=== PATIENT | female | born 1990 | race Two or more races ===

== ENCOUNTER → 2018-10-11 13:46 | Outpatient (CLI) | payer BC, SELFPAY ==
[2018-10-11 17:52] LABS: Chlamydia Trachomatis by PCR Negative (Negative); Neisserai gonorrhoeae by PCR Negative (Negative); Probe Check PASS; Sample Adequacy Control PASS; Specimen Processing Control PASS
--- OUTSIDE RECORDS SUMMARY | 2018-12-13 12:58 | XMS RPT_ITS ---
:1990 Author Organization [facility] Care Team Providers Name Role Phone LILLIANA SCHAEFFER (TRIMMER AND BORER MACHINE OPERATOR) Attending Unavailable OLDER, SINDY (ANJEL) Referring Unavailable OLDER, SINDY (ANJEL) Attending Unavailable OLDER, SINDY (ANJEL) Attending Unavailable Aislinn England Attending Unavailable Primay Care Physicia, No Primary Care Unavailable PROBLEMS PROBLEMS DATE TYPE CONDITION / CODE ATTENDING STATUS SOURCE 10/12/2018 Unknown Z11.3 - Encounter Aislinn England Active [place] for screening for Community infections with a Hospital predominantly Repository sexual mode of transmission / Z11.3(ICD-10) 07/28/2018 Active Encounter for NA Active [facility] medical examination Repository without abnormal findings / Z00.00(ICD-10) PROCEDURES PROCEDURES No Procedure Records FoundRESULTS RESULTS CT/NG [facility] BY PCR Collected: 10/11/2018 Status: F Source: [place] 9:30 AM [facility] [place] REPOSITORY TYPE CODE TESTS RESULT OUT OF RANGE REFERENCE UNITS LAB L8200.2100 Negative Normal Chlam Negative Trac PCR LAB L8200.2200 Negative Normal NG by Negative PCR Performed By: #### L8200.2000 #### [facility] [address] [place], [address] PROGRESS Observed: 08/18/2018 Status: COMPLETED Source: [place] 7:55 AM [facility] REPOSITORY HNO ID: [id number] Author: Sindy Figueroa) Older Service: (none) Author Type: Nurse Practitioner Type: Progress Notes Filed: 08/18/2018 8:13 AM Note Text: CC Patient presents with: Sinus Problem Dizziness ARACELY Mix is a 28 year old female who presents with dizziness described as tilting back and forth sensation. This is new onset. Symptoms started yesterday morning. They were constant all day yesterday. No dizziness last night or this morning. Recent events include: Sinus symptoms two weeks ago including fever, nasal congestion, facial pain/pressure, sore throat. Jefferson better a couple days ago but no symptoms are coming back. Associated symptoms include blurred vision which has also resolved. Tinnitus?-No. Hearing loss/ear fullness or pressure? -No Aggravated by walking. Alleviated by holding still. Negative for: nausea, vomting, eyes jumping and ear pain, headaches, syncope, memory loss, confusion, numbness or tingling of hands, numbness or tingling of feet, muscle weakness, tremor Treatments tried include: nothing REVIEW OF SYSTEMS General: no fevers, no chills, no night sweats, no change in appetite, no change in energy and no significant changes in weight Respiratory: no cough, no wheezing, no shortness of breath Cardiovascular: no chest pain, no chest pressure, no palpitations and no swelling No past medical history on file. PAST SURGICAL HISTORY Procedure Laterality Date - NONE ALLERGIES Patient has no known allergies. MEDICATIONS No prescriptions on file. No family history on file. Social History Substance Use Topics - Smoking status: Never Smoker - Smokeless tobacco: Never Used - Alcohol use No PHYSICAL EXAM BP 120/78 (BP Site: Left Arm, BP Position: Sitting, BP Cuff Size: Regular Adult) Pulse 84 Temp 36.8 ?C (98.3 ?F) Resp 16 Wt 77.1 kg (170 lb) SpO2 99% BMI 25.18 kg/m? General appearance: Alert, cooperative, pleasant, in no acute distress Head: Normocephalic, atraumatic Eyes: conjunctiva/corneas normal, PERRL, EOMI Ears: R TM - clear with good landmarks, bubbles present, L TM - clear with good landmarks Oropharynx: moist without lesions Neck: supple and no lymph node swelling but tenderness of anterior superficial cervical nodes Heart: regular rate and rhythm, without murmur Lungs: clear to auscultation, without rales or wheeze, good air exchange Neuro: Awake, alert and oriented x 3 and Cranial nerves II- XII grossly intact ASSESSMENT/PLAN: 1. Dizziness - ICD9: 780.4, ICD10: R42 (primary diagnosis) No alarm symptoms or exam findings. Neuro and cardiac exam benign. Symptoms consistent with acute sinusitis, likely the cause of dizziness. - See plan below - Follow-up as needed if dizziness recurs 2. Acute non-recurrent sinusitis, unspecified location - ICD9: 461.9, ICD10: J01.90 - Will begin treatment with Amoxicillin for 7 days - The patient can also use OTC nasal sprays and/or cold medications/decongestants as needed - Supportive care with plenty of fluids, rest, and analgesia prn. - Follow up in 3-5 days if sinus symptoms persist or worsen. Prescription instructions reviewed with patient as applicable. Potential red flag symptoms discussed with the patient. Reviewed appropriate action plan to take if red flag symptoms occur. Patient agreeable to treatment plan Sindy You APRN.CNP CNOV Observed: 08/18/2018 Status: COMPLETED Source: [place] 7:40 AM [facility] REPOSITORY Office Visit (INTMWS) IRINA MXI ([id number]* 1990 [facility] Date Time Provider Department 08/18/18 7:40 AM SINDY YOU (ANJEL) INTBrendaWS During your visit today, we recorded the following information about you: Temperature Pulse Respiration Blood pressure 98.3 degrees 84/minute 16/minute 120/78 Weight 77.1 kg Sindy You APRN.CNP 08/18/2018 8:13 AM Signed CC Patient presents with: Sinus Problem Dizziness HPI Aundreapato Talon Dominguez is a 28 year old female who presents with dizziness described as tilting back and forth sensation. This is new onset. Symptoms started yesterday morning. They were constant all day yesterday. No dizziness last night or this morning. Recent events include: Sinus symptoms two weeks ago including fever, nasal congestion, facial pain/pressure, sore throat. Jefferson better a couple days ago but no symptoms are coming back. Associated symptoms include blurred vision which has also resolved. Tinnitus?-No. Hearing loss/ear fullness or pressure? -No Aggravated by walking. Alleviated by holding still. Negative for: nausea, vomting, eyes jumping and ear pain, headaches, syncope, memory loss, confusion, numbness or tingling of hands, numbness or tingling of feet, muscle weakness, tremor Treatments tried include: nothing REVIEW OF SYSTEMS General: no fevers, no chills, no night sweats, no change in appetite, no change in energy and no significant changes in weight Respiratory: no cough, no wheezing, no shortness of breath Cardiovascular: no chest pain, no chest pressure, no palpitations and no swelling No past medical history on file. PAST SURGICAL HISTORY Procedure Laterality Date - NONE ALLERGIES Patient has no known allergies. MEDICATIONS No prescriptions on file. No family history on file. Social History Substance Use Topics - Smoking status: Never Smoker - Smokeless tobacco: Never Used - Alcohol use No PHYSICAL EXAM BP 120/78 (BP Site: Left Arm, BP Position: Sitting, BP Cuff Size: Regular Adult) Pulse 84 Temp 36.8 ?C (98.3 ?F) Resp 16 Wt 77.1 kg (170 lb) SpO2 99% BMI 25.18 kg/m? General appearance: Alert, cooperative, pleasant, in no acute distress Head: Normocephalic, atraumatic Eyes: conjunctiva/corneas normal, PERRL, EOMI Ears: R TM - clear with good landmarks, bubbles present, L TM - clear with good landmarks Oropharynx: moist without lesions Neck: supple and no lymph node swelling but tenderness of anterior superficial cervical nodes Heart: regular rate and rhythm, without murmur Lungs: clear to auscultation, without rales or wheeze, good air exchange Neuro: Awake, alert and oriented x 3 and Cranial nerves II- XII grossly intact ASSESSMENT/PLAN: 1. Dizziness - ICD9: 780.4, ICD10: R42 (primary diagnosis) No alarm symptoms or exam findings. Neuro and cardiac exam benign. Symptoms consistent with acute sinusitis, likely the cause of dizziness. - See plan below - Follow-up as needed if dizziness recurs 2. Acute non-recurrent sinusitis, unspecified location - ICD9: 461.9, ICD10: J01.90 - Will begin treatment with Amoxicillin for 7 days - The patient can also use OTC nasal sprays and/or cold medications/decongestants as needed - Supportive care with plenty of fluids, rest, and analgesia prn. - Follow up in 3-5 days if sinus symptoms persist or worsen. Prescription instructions reviewed with patient as applicable. Potential red flag symptoms discussed with the patient. Reviewed appropriate action plan to take if red flag symptoms occur. Patient agreeable to treatment plan LAMIN Mendoza APRN.CNP 08/18/2018 8:02 AM Signed Call office if dizziness reoccurs For nasal congestion: over the counter saline nasal spray and/or fluticasone, nasonex or nasocort Referring Provider: SELF [200] Allergies As of Date: 08/18/2018 (No Known Allergies) Date Reviewed: 08/18/2018 Reviewed by: Alisa Holden LPN - Fully Assessed Reason for Visit: Sinus Problem [99] Dizziness [36] Primary Visit Diagnosis:Dizziness [R42] Other Visit Diagnosis:Acute non-recurrent sinusitis, unspecified location [J01.90] Order(s):amoxicillin (AMOXIL) 875 mg tabletTake 1 tablet by mouth twice daily for 7 days.Disp: 14 tabletRfl: 0 Prescriptions as of 08/18/2018 Sig: AMOXICILLIN 875 MG TABLET Take 1 tablet by mouth twice * Problem List As Of Date: 08/18/2018 (None) Other instructions from your clinician: Call office if dizziness reoccurs For nasal congestion: over the counter saline nasal spray and/or fluticasone, nasonex or nasocort Prescriptions ordered this encounter Disp Refills Start End AMOXICILLIN 875 MG TABLET 14 t* 0 08/18/2018 08/25/2018 Route: ORAL Sig: Take 1 tablet by mouth twice daily for 7 days. Encounter Status:Closed by SINDY YOU CNP on 08/18/18 ARYAN Observed: 07/31/2018 Status: COMPLETED Source: [place] 12:00 AM [facility] REPOSITORY Telephone (INTMWS) IRINA MIX ([id number]* 1990 F [place] Date Time Provider Department 07/31/18 SINDY YOU) INTMWS During your visit today, we recorded the following information about you: Edmundo Morrow Cma 07/31/2018 9:58 AM Signed ----- Message from Sindy (Anjel) Older sent at 07/31/2018 7:14 AM EST ----- Glucose and cholesterol levels normal LAMIN Mendoza Cma 07/31/2018 9:59 AM Signed Attempted to call patient. No answer and no voicemail. Edmundo Morrow Cma 07/31/2018 10:04 AM Signed Mailed letter to patient with copy of labs and all information. Edmundo Morrow Cma Allergies As of Date: 07/31/2018 (No Known Allergies) Date Reviewed: 07/21/2018 Reviewed by: Evelyn Alex LPN - Fully Assessed Reason for Visit: Results [95] Problem List As Of Date: 07/31/2018 (None) Letter Text [facility] [address], [place] [address] [facility] [place] [address] Clinic #: [id number] 07/31/2018 Glucose and cholesterol levels normal. Component Latest Ref Rng AND Units 07/28/2018 Cholesterol, Total <200 mg/dL 137 Triglyceride <150 mg/dL 55 HDL Cholesterol >39 mg/dL 46 LDL Cholesterol <100 mg/dL 80 Non HDL Cholesterol <130 mg/dL 91 Fasting Time hrs 14 VLDL Cholesterol <30 mg/dL 11 TC:HDL Ratio <5.10 2.98 LDL:HDL Ratio <2.54 1.74 Glucose, Fasting 74 - 99 mg/dL 88 Sindy You, ARCH SUPPORT MAKERJOHNATHAN Encounter Status:Closed by EDMUNDO MORROW CMA on 07/31/18 LIPID PANEL, BASIC Collected: 07/28/2018 Status: F Source: [place] 7:58 AM [facility] REPOSITORY TYPE CODE TESTS RESULT OUT OF REFERENCE UNITS RANGE LAB CHOL <200 mg/dL Cholesterol 137 Result Comment: <200 mg/dL, Desirable 200-239 mg/dL, Borderline high >239 mg/dL, High LAB TRIGLY <150 mg/dL Triglyceride 55 Result Comment: <150 mg/dL, Normal 150-199 mg/dL, Borderline high 200-499 mg/dL, High >499 mg/dL, Very high LAB HDL >39 mg/dL HDL-Cholesterol 46 Result Comment: 40-59 mg/dL, Acceptable >59 mg/dL, High: Negative risk factor for coronary heart disease <40 mg/dL, Low: Positive risk factor for coronary heart disease LAB LDL <100 mg/dL LDL-Cholesterol 80 Result Comment: <100 mg/dL, Optimal 100-129 mg/dL, Near optimal/above optimal 130-159 mg/dL, Borderline high 160-189 mg/dL, High >189 mg/dL, Very high Secondary prevention optimal LDL Cholesterol levels are recommended to be < 70 mg/dL LAB NONHDL <130 mg/dL Non HDL Cholesterol 91 Result Comment: <130 mg/dL, Optimal 130-159 mg/dL, Near optimal/above optimal 160-189 mg/dL, Borderline high 190-219 mg/dL, High >219 mg/dL, Very high Secondary prevention optimal non HDL Cholesterol levels are recommended to be < 100 mg/dL LAB FT hrs Fasting Time 14 LAB VLDL <30 mg/dL VLDL Cholesterol 11 LAB TCHDL <5.10 TC:HDL Ratio 2.98 LAB LDLHDL <2.54 LDL:HDL Ratio 1.74 Result Comment: Reference: 1. National Cholesterol Education Program ATP III Guideline At-A-Glance Quick Desk Reference: National Heart, Lung, and Blood [place]. National Institutes of Health. 2001: NIH Publication No. 01-3305. 2. An International Atherosclerosis Society position paper: global recommendations for the management of dyslipidemia: executive summary, Atherosclerosis. 2014: 232(2):410-413. Performed By: #### LIPB #### [facility] [address] [place], [place] [address] GLUCOSE, FASTING Collected: 07/28/2018 Status: F Source: [place] 7:58 AM [facility] REPOSITORY TYPE CODE TESTS RESULT OUT OF REFERENCE UNITS RANGE LAB GLF 74-99 mg/dL Glucose, 88 Fasting Result Comment: [place] Diabetes Association guidelines state that a diabetes mellitus diagnosis is preliminarily made when the fasting plasma glucose meets or exceeds 126 mg/dL. In the absence of unequivocal hyperglycemia, results should be confirmed with repeat testing. Patients are at increased risk for diabetes mellitus (prediabetes) when the fasting glucose is 100 to 125 mg/dL. Performed By: #### GLF #### [facility] [address] [place], [place] [address] PROGRESS Observed: 07/21/2018 Status: COMPLETED Source: [place] 7:56 AM [facility] REPOSITORY HNO ID: [id number] Author: Sindy (Anjel) Older Service: (none) Author Type: Nurse Practitioner Type: Progress Notes Filed: 07/21/2018 8:12 AM Note Text: CC: Patient presents with: Physical HPI Irina Mix is a 28 year old female who presents today for annual physical exam. Exercise: yes Diet: Well balanced Caffeine: No Water intake: adequate Alcohol intake: no Smoker: No REVIEW OF SYSTEMS General: no fevers, no chills, no night sweats, no recurrent infections, no change in appetite, no change in energy and no significant changes in weight HEENT: no frequent or significant headaches, no changes in hearing, no visual changes Neck: no lumps, no pain and no swelling Respiratory: no cough, no wheezing, no shortness of breath Cardiovascular: no chest pain, no chest pressure, no palpitations and no swelling GI: Negative for abdominal discomfort, blood in stools or black stools, change in bowel habit, heart burn, nausea, vomiting Skin: Negative for lesions, rash, and itching Psych: Negative for sleep disturbance, mood disorder and recent psychosocial stressors No past medical history on file. PAST SURGICAL HISTORY Procedure Laterality Date - NONE ALLERGIES Patient has no known allergies. MEDICATIONS No prescriptions on file. History reviewed. No pertinent family history. Social History Substance Use Topics - Smoking status: Never Smoker - Smokeless tobacco: Never Used - Alcohol use No PHYSICAL EXAM BP 110/74 (BP Site: Left Arm, BP Position: Sitting, BP Cuff Size: Regular Adult) Pulse 84 Temp 37.1 ?C (98.8 ?F) Resp 12 Ht 175 cm (5' 8.9) Wt 76.8 kg (169 lb 6.4 oz) LMP 06/28/2018 (Approximate) SpO2 99% BMI 25.09 kg/m? General Appearance: well appearing, in no acute distress, alert Pysch: mood and affect broad and appropriate Skin: Skin color, texture, turgor normal for age; Eyes: PERRLA, conjunctiva pink and moist, no icterus, sclera white, non-injected Neck: Thyroid normal size and symmetric without palpable nodules, Neck supple, No adenopathy Oropharynx: lips normal without lesions, tongue midline and normal, soft palate, uvula, and tonsils normal Lymph nodes: No supraclavicular lymphadenopathy Lungs: Lungs clear to auscultation. No wheezing, rhonchi, rales Heart: RRR without murmur, gallop, or rubs. No ectopy Abdomen: Abdomen soft, non-tender. Bowel sounds normal. No masses, organomegaly Ext: no edema in LE bilaterally, good distal pulses DTAP,TDAP,TD(1 - Tdap) due on 01/21/2007 HPV EVERY 5 YEARS due on 01/21/2018 INFLUENZA(1) due on 05/20/2018 PAP EVERY 5 YEARS due on 03/12/2021 ASSESSMENT/PLAN: 1. Encounter for preventative adult health care examination - ICD9: V70.0, ICD10: Z00.00 - Recommended calcium intake with supplements or by diet (goal of 5084-0161 mg/day. Recommend Vitamin D supplementation. - Recommended regular aerobic exercise. - Check fasting glucose and fasting lipid panel - Vaccination(s) recommended today of Influenza, patient declined. Unsure when her last Tetanus shot was, will look it up at home and schedule nurse visit if it has been more than 10 years - Follow up for annual exam in one year. - LIPID PANEL BASIC - GLUCOSE FASTING KYED Sindy You APRN.CNP CNOV Observed: 07/21/2018 Status: COMPLETED Source: [place] 7:40 AM [facility] REPOSITORY Office Visit (INTMWS) IRINA MIX ([id number]* 1990 F [place] Date Time Provider Department 07/21/18 7:40 AM SINDY YOU (ANJEL) INTMWS During your visit today, we recorded the following information about you: Temperature Pulse Respiration Blood pressure 98.8 degrees 84/minute 12/minute 110/74 Weight Height Last Period 76.8 kg 1.75 m 06/28/18 Sindy You APRN.CNP 07/21/2018 8:12 AM Signed CC: Patient presents with: Physical HPI Irina Mix is a 28 year old female who presents today for annual physical exam. Exercise: yes Diet: Well balanced Caffeine: No Water intake: adequate Alcohol intake: no Smoker: No REVIEW OF SYSTEMS General: no fevers, no chills, no night sweats, no recurrent infections, no change in appetite, no change in energy and no significant changes in weight HEENT: no frequent or significant headaches, no changes in hearing, no visual changes Neck: no lumps, no pain and no swelling Respiratory: no cough, no wheezing, no shortness of breath Cardiovascular: no chest pain, no chest pressure, no palpitations and no swelling GI: Negative for abdominal discomfort, blood in stools or black stools, change in bowel habit, heart burn, nausea, vomiting Skin: Negative for lesions, rash, and itching Psych: Negative for sleep disturbance, mood disorder and recent psychosocial stressors No past medical history on file. PAST SURGICAL HISTORY Procedure Laterality Date - NONE ALLERGIES Patient has no known allergies. MEDICATIONS No prescriptions on file. History reviewed. No pertinent family history. Social History Substance Use Topics - Smoking status: Never Smoker - Smokeless tobacco: Never Used - Alcohol use No PHYSICAL EXAM BP 110/74 (BP Site: Left Arm, BP Position: Sitting, BP Cuff Size: Regular Adult) Pulse 84 Temp 37.1 ?C (98.8 ?F) Resp 12 Ht 175 cm (5' 8.9) Wt 76.8 kg (169 lb 6.4 oz) LMP 06/28/2018 (Approximate) SpO2 99% BMI 25.09 kg/m? General Appearance: well appearing, in no acute distress, alert Pysch: mood and affect broad and appropriate Skin: Skin color, texture, turgor normal for age; Eyes: PERRLA, conjunctiva pink and moist, no icterus, sclera white, non-injected Neck: Thyroid normal size and symmetric without palpable nodules, Neck supple, No adenopathy Oropharynx: lips normal without lesions, tongue midline and normal, soft palate, uvula, and tonsils normal Lymph nodes: No supraclavicular lymphadenopathy Lungs: Lungs clear to auscultation. No wheezing, rhonchi, rales Heart: RRR without murmur, gallop, or rubs. No ectopy Abdomen: Abdomen soft, non-tender. Bowel sounds normal. No masses, organomegaly Ext: no edema in LE bilaterally, good distal pulses DTAP,TDAP,TD(1 - Tdap) due on 01/21/2007 HPV EVERY 5 YEARS due on 01/21/2018 INFLUENZA(1) due on 05/20/2018 PAP EVERY 5 YEARS due on 03/12/2021 ASSESSMENT/PLAN: 1. Encounter for preventative adult health care examination - ICD9: V70.0, ICD10: Z00.00 - Recommended calcium intake with supplements or by diet (goal of 5260-8482 mg/day. Recommend Vitamin D supplementation. - Recommended regular aerobic exercise. - Check fasting glucose and fasting lipid panel - Vaccination(s) recommended today of Influenza, patient declined. Unsure when her last Tetanus shot was, will look it up at home and schedule nurse visit if it has been more than 10 years - Follow up for annual exam in one year. - LIPID PANEL BASIC - GLUCOSE FASTING BLD Sindy You, ARCH SUPPORT MAKER.ANJEL You APRN.CNP 07/21/2018 8:08 AM Signed HEALTH MAINTENANCE RECOMMENDATIONS You are due for the following preventative care screenings and immunizations: Tetanus immunization if you have not had in the last 10 years We all can help regulate our body's health. Start by making the following changes in your health plan: 1. If you smoke, stop smoking! [id number], or talk to your doctor for further help. 2. Walk 30 minutes per day. Get a bhavani... it makes it easier and fun! Add 20 minutes of weight resistant exercises per week. 3. AVOID the following foods, they age us: -Saturated fats (look at the nutrition label) -Trans fats (Look on the nutrition label) -Simple sugars (those are the candies, pastries, cakes; they break down quicker and store as fat, harden our arteries) -Simple carbohydrates (like white starches; Do whole grain instead. Look at the fiber content, the more fiber the better for you) -Enriched Flour (do whole grain instead- it's listed on the ingredient section of food nutrition labels) 4. CALCIUM: If you are not able to obtain the recommended amount of calcium from your diet, a supplement is recommended - just be sure the one you purchase contains Vitamin D. 1000mg elemental calcium for premenopausal women age 19-50 1200mg elemental calcium for postmenopausal women and all women over 50. VITAMIN D: Recommended intake according to the National Institutes of Health is 600 International Units (IU) for girls and women ages 1-70 and 800 IU for women over 70. Very few foods in nature contain vitamin D. Referring Provider: SELF [200] Allergies As of Date: 07/21/2018 (No Known Allergies) Date Reviewed: 07/21/2018 Reviewed by: Evelyn Alex LPN - Fully Assessed Reason for Visit: Physical [83] Primary Visit Diagnosis:Encounter for preventative adult health care examination [Z00.00] Order(s):LIPID PANEL BASIC [SQLIPB] Order #: [id number] FUTURE GLUCOSE FASTING BLD [SQGLF] Order #: [id number] FUTURE Problem List As Of Date: 07/21/2018 (None) Other instructions from your clinician: HEALTH MAINTENANCE RECOMMENDATIONS You are due for the following preventative care screenings and immunizations: Tetanus immunization if you have not had in the last 10 years We all can help regulate our body's health. Start by making the following changes in your health plan: 1. If you smoke, stop smoking! [id number], or talk to your doctor for further help. 2. Walk 30 minutes per day. Get a bhavani... it makes it easier and fun! Add 20 minutes of weight resistant exercises per week. 3. AVOID the following foods, they age us: -Saturated fats (look at the nutrition label) -Trans fats (Look on the nutrition label) -Simple sugars (those are the candies, pastries, cakes; they break down quicker and store as fat, harden our arteries) -Simple carbohydrates (like white starches; Do whole grain instead. Look at the fiber content, the more fiber the better for you) -Enriched Flour (do whole grain instead- it's listed on the ingredient section of food nutrition labels) 4. CALCIUM: If you are not able to obtain the recommended amount of calcium from your diet, a supplement is recommended - just be sure the one you purchase contains Vitamin D. 1000mg elemental calcium for premenopausal women age 19-50 1200mg elemental calcium for postmenopausal women and all women over 50. VITAMIN D: Recommended intake according to the National Institutes of Health is 600 International Units (IU) for girls and women ages 1-70 and 800 IU for women over 70. Very few foods in nature contain vitamin D. Encounter Status:Closed by SINDY YOU CNP on 07/21/18 Observed: 02/14/2018 Status: F Source: [place] URINE CULTURE 8:01 AM [facility] REPOSITORY Sp. Request/Comment: - Specimen received in preservative Culture Result - 50,000 - <100,000 CFU/ml Staphylococcus saprophyticus --> ABNORMAL ALERT Routine testing of urine isolates of Staphylococcus saprophyticus is not recommended by the National [facility] for Clinical Laboratory Standards for acute, uncomplicated urinary tract infections. --> ABNORMAL ALERT This organism responds to antimicrobial drug concentrations achieved in urine of commonly used antibiotics (i.e. nitrofurantoin, trimethoprim with and without sulfamethoxazole, or a fluroquinolone). --> ABNORMAL ALERT Performed By: #### URCUL #### [facility] [address] [place] [id number] PROGRESS Observed: 02/14/2018 Status: COMPLETED Source: [place] 7:58 AM [facility] REPOSITORY HNO ID: [id number] Author: Mckenna Rios Service: (none) Author Type: Physician Agricultural Sciences Professor Type: Progress Notes Filed: 02/14/2018 8:05 AM Note Text: 02/14/2018 Patient presents with: Urinary Problem: x 1 week left flank pain and burning with urination SUBJECTIVE: This is a 28 year old that is here today for Complaint(s) of dysuria and urinary frequency x 1 week. + left sided back/flank discomfort, varies in intensity of pain. slightly better currently. Denies fever/chills, nausea, vomiting. No past medical history on file. ALLERGIES Patient has no known allergies. MEDICATIONS No current outpatient prescriptions on file. No current facility-administered medications for this visit. SOCIAL HISTORY Social History Marital status: Spouse name: Years of education: Number of children: Social History Main Topics Smoking status: Never Smoker Smokeless tobacco: Never Used Alcohol use: No Sexual activity: Yes Partners with: Male control/protection: Condom REVIEW OF SYSTEMS All other reviewed and negative other than HPI. OBJECTIVE: BP 112/62 Pulse 78 Temp 37.1 ?C (98.7 ?F) Resp 18 Wt 78.5 kg (173 lb) BMI 26.30 kg/m? APPEARANCE Well appearing, alert, in no acute distress, well-hydrated, well nourished. ABDOMEN bowel sounds normoactive, no bruits, soft, mild suprapubic TTP, no rebound, rigidity or guarding. Negative mcBurney's. BACK: mild left CVA TTP ASSESSMENT/PLAN: 1. Burning with urination - ICD9: 788.1, ICD10: R30.0 (primary diagnosis) acute - UA positive for sadi esterase and hematuria - Send urine for culture - Begin treatment with Bactrim DS BID for 5 days - Patient education for prevention given - UA DIP B/O - URINE CULTURE - SULFAMETHOXAZOLE 800 MG-TRIMETHOPRIM 160 MG TABLET 2. Left flank pain - ICD9: 789.09, ICD10: R10.9 Etiology unclear Differential Diagnosis includes UTI, nephrolithiasis Reviewed red flags and when to seek care sooner in ER - UA DIP B/O - URINE CULTURE - SULFAMETHOXAZOLE 800 MG-TRIMETHOPRIM 160 MG TABLET The patient indicates understanding of these issues and agrees with the plan. Reviewed red flags and when to seek care sooner. Mckenna Rios PA-C CNOV Observed: 02/14/2018 Status: COMPLETED Source: [place] 7:45 AM [facility] REPOSITORY Office Visit ([facility]) IRINA MIX ([id number]* 1990 F [place] Date Time Provider Department 02/14/18 7:45 AM MCKENNA RIOS) [facility] During your visit today, we recorded the following information about you: Temperature Pulse Respiration Blood pressure 98.7 degrees 78/minute 18/minute 112/62 Weight 78.5 kg Mckenna Rios PA-C 02/14/2018 8:05 AM Signed 02/14/2018 Patient presents with: Urinary Problem: x 1 week left flank pain and burning with urination SUBJECTIVE: This is a 28 year old that is here today for Complaint(s) of dysuria and urinary frequency x 1 week. + left sided back/flank discomfort, varies in intensity of pain. slightly better currently. Denies fever/chills, nausea, vomiting. No past medical history on file. ALLERGIES Patient has no known allergies. MEDICATIONS No current outpatient prescriptions on file. No current facility-administered medications for this visit. SOCIAL HISTORY Social History Marital status: Spouse name: Years of education: Number of children: Social History Main Topics Smoking status: Never Smoker Smokeless tobacco: Never Used Alcohol use: No Sexual activity: Yes Partners with: Male control/protection: Condom REVIEW OF SYSTEMS All other reviewed and negative other than HPI. OBJECTIVE: BP 112/62 Pulse 78 Temp 37.1 ?C (98.7 ?F) Resp 18 Wt 78.5 kg (173 lb) BMI 26.30 kg/m? APPEARANCE Well appearing, alert, in no acute distress, well- hydrated, well nourished. ABDOMEN bowel sounds normoactive, no bruits, soft, mild suprapubic TTP, no rebound, rigidity or guarding. Negative mcBurney's. BACK: mild left CVA TTP ASSESSMENT/PLAN: 1. Burning with urination - ICD9: 788.1, ICD10: R30.0 (primary diagnosis) acute - UA positive for sadi esterase and hematuria - Send urine for culture - Begin treatment with Bactrim DS BID for 5 days - Patient education for prevention given - UA DIP B/O - URINE CULTURE - SULFAMETHOXAZOLE 800 MG-TRIMETHOPRIM 160 MG TABLET 2. Left flank pain - ICD9: 789.09, ICD10: R10.9 Etiology unclear Differential Diagnosis includes UTI, nephrolithiasis Reviewed red flags and when to seek care sooner in ER - UA DIP B/O - URINE CULTURE - SULFAMETHOXAZOLE 800 MG-TRIMETHOPRIM 160 MG TABLET The patient indicates understanding of these issues and agrees with the plan. Reviewed red flags and when to seek care sooner. KHALIF Joshi PA-C 02/14/2018 8:01 AM Signed URINARY TRACT INFECTION GENERAL INFORMATION: A urinary tract infection (UTI) is an infection of the bladder or kidneys. A bladder infection, called cystitis, is the more common type. If the infection travels up to the kidneys, it is called pyelonephritis. This can be more serious. UTIs are a common problem in women. Having sexual relations can leave a woman more susceptible to developing a UTI, but it is not sexually transmitted like gonorrhea. Some women have a problem with recurrent UTIs. INSTRUCTIONS: 1. Your doctor prescribed an antibiotic to treat the UTI. Take exactly as directed. Be sure to take all the medication prescribed, even if your symptoms disappear. If you stop treatment early, the infection may not be fully treated and the symptoms could come back again. 2. Get plenty of rest. You may take acetaminophen for fever and aches. 3. Drink 6 to 8 glasses of fluids, especially water, every day. This helps wash out germs from your urinary tract. Cranberry juice or other sources of vitamin C are also good for you. 4. Urinate often, as soon as you feel the urge. Empty your bladder completely. Urinate before and after you have sex. 5. Always wipe from front to back after going to the bathroom. This pushes germs away from your bladder, rather than towards it. 6. Showers are better than baths, and you should wash the genital area daily. Avoid bubble bath or bath oils if you do take a bath. 7. Wear underwear and pantyhose with a cotton crotch. CONTACT YOUR DOCTOR: 1. You have a temperature over 102F (38.8C) after 48 hours on medication. 2. You notice blood in your urine. 3. Your symptoms don't improve in 2 days. 4. You develop nausea, vomiting, diarrhea, or a rash. 5. You develop new or unexplained symptoms. These may be related to the medication you are taking. 6. Your symptoms return after you finish treatment. RETURN TO THE EMERGENCY DEPARTMENT IF: You develop vomiting and can't keep your medication or fluids down. Referring Provider: SELF [200] Allergies As of Date: 02/14/2018 (No Known Allergies) Date Reviewed: 02/14/2018 Reviewed by: hTania Law LPN - Fully Assessed Reason for Visit: Urinary Problem [252] Cmt: x 1 week left flank pain and burning with urination Primary Visit Diagnosis:Burning with urination [R30.0] Other Visit Diagnosis:Left flank pain [R10.9] Order(s):UA DIP B/O [[id number]] Order #: [id number] URINE CULTURE [[facility]] Order #: [id number] sulfamethoxazole-trimethoprim (BACTRIM DS) 800-160 mg per tabletTake 1 tablet by mouth twice daily for 5 days.Disp: 6 tabletRfl: 0 Prescriptions as of 02/14/2018 Sig: SULFAMETHOXAZOLE 800 MG-TRIME* Take 1 tablet by mouth twice * Problem List As Of Date: 02/14/2018 (None) Other instructions from your clinician: URINARY TRACT INFECTION GENERAL INFORMATION: A urinary tract infection (UTI) is an infection of the bladder or kidneys. A bladder infection, called cystitis, is the more common type. If the infection travels up to the kidneys, it is called pyelonephritis. This can be more serious. UTIs are a common problem in women. Having sexual relations can leave a woman more susceptible to developing a UTI, but it is not sexually transmitted like gonorrhea. Some women have a problem with recurrent UTIs. INSTRUCTIONS: 1. Your doctor prescribed an antibiotic to treat the UTI. Take exactly as directed. Be sure to take all the medication prescribed, even if your symptoms disappear. If you stop treatment early, the infection may not be fully treated and the symptoms could come back again. 2. Get plenty of rest. You may take acetaminophen for fever and aches. 3. Drink 6 to 8 glasses of fluids, especially water, every day. This helps wash out germs from your urinary tract. Cranberry juice or other sources of vitamin C are also good for you. 4. Urinate often, as soon as you feel the urge. Empty your bladder completely. Urinate before and after you have sex. 5. Always wipe from front to back after going to the bathroom. This pushes germs away from your bladder, rather than towards it. 6. Showers are better than baths, and you should wash the genital area daily. Avoid bubble bath or bath oils if you do take a bath. 7. Wear underwear and pantyhose with a cotton crotch. CONTACT YOUR DOCTOR: 1. You have a temperature over 102F (38.8C) after 48 hours on medication. 2. You notice blood in your urine. 3. Your symptoms don't improve in 2 days. 4. You develop nausea, vomiting, diarrhea, or a rash. 5. You develop new or unexplained symptoms. These may be related to the medication you are taking. 6. Your symptoms return after you finish treatment. RETURN TO THE EMERGENCY DEPARTMENT IF: You develop vomiting and can't keep your medication or fluids down. Prescriptions ordered this encounter Disp Refills Start End SULFAMETHOXAZOLE 800 MG-TRIMETHOPRIM* 6 ta* 0 02/14/2018 02/19/2018 Route: ORAL Sig: Take 1 tablet by mouth twice daily for 5 days. Encounter Status:Closed by MCKENNA RIOS PA-C on 02/14/18 PROGRESS Observed: 12/16/2017 Status: COMPLETED Source: [place] 8:05 AM [facility] REPOSITORY HNO ID: [id number] Author: Lilliana Figueroa) Laury Service: (none) Author Type: Nurse Practitioner Type: Progress Notes Filed: 12/16/2017 9:03 AM Note Text: Irina Mix is a 27 year old who presents for her annual gynecologic exam without complaints. 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 Contraception: none- desires HPV vaccine: No Last Pap: 2016 normal HPV: N/A History of abnormal pap: No Last mammogram: never Sexually active: Yes Pain with intercourse: Yes Postcoital bleeding: No Obstetric History T0 L0 SAB0 TAB0 Ectopic0 Multiple0 Live Births0 No past medical history on file. PAST SURGICAL HISTORY Procedure Laterality Date - NONE No family history on file.SOCIAL HISTORY Social History Substance Use Topics - Smoking status: Never Smoker - Smokeless tobacco: Never Used - Alcohol use No REVIEW OF SYSTEMS Abdomen: No abdominal pain, nausea, vomiting, diarrhea, or constipation. No bloating, early satiety, indigestion, or increased flatulence. Bladder: No dysuria, gross hematuria, urinary frequency, urinary urgency, or incontinence. Breast: No breast lumps, nipple d/c, overlying skin changes, redness or skin retraction. Allergies and current medication updated:Yes EXAM: There were no vitals taken for this visit. GENERAL: pleasant, female in no apparent distress HEENT: Normocephalic, atraumatic, mucus membranes moist and no lesions NECK: Supple, full range of motion, no adenopathy and thyroid normal DERMATOLOGY: Normal, without lesions, non-icteric and non-hirsute BREAST: soft, non-tender, symmetric, no dominant mass, normal nipple-areolar complex, no lymphadenopathy and no nipple discharge CHEST: Normal inspiratory effort ABDOMEN: soft, non-tender and no masses PELVIC: external genitalia normal, normal Bartholin's glands, urethra, [place]'s glands, no vulvar lesions, no cervical lesions, good vaginal support, physiologic discharge present, normal appearing perineal body and perianal region, well estrogenized BIMANUAL: uterus normal size, shape and consistency, no adnexal masses, non-tender and no cervical motion tenderness RECTOVAGINAL: deferred. NEURO: alert and oriented x3,exam grossly non-focal EXTREMITIES: normal ASSESSMENT/PLAN: 1) Health maintenance: Pap/HPV up to date. Mammogram starting age 40. Nutrition, exercise and routine health maintenance exams reviewed. Calcium/Vitamin D supplementation information provided. 2) Contraception: none. Contraceptive options reviewed and information provided. 3) STD screening: Declined STD check. 4) Follow up one year or sooner as needed 5) Recommended PNV w/ folic acid preconception and to track ovulation Lilliana Schaeffer APRN.CNP CNOV Observed: 12/16/2017 Status: COMPLETED Source: [place] 8:00 AM [facility] REPOSITORY Office Visit ([facility]) IRINA MIX ([id number]* 1990 F [place] Date Time Provider Department 12/16/17 8:00 AM LILLIANA SCHAEFFER (ANJEL) [facility] During your visit today, we recorded the following information about you: Pulse Respiration Blood pressure Weight 80/minute 16/minute 110/68 79.8 kg Height Last Period 1.727 m 11/29/17 Lilliana Schaeffer APRN.CNP 12/16/2017 9:03 AM Signed Irina Talon Mix is a 27 year old who presents for her annual gynecologic exam without complaints. 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 Contraception: none- desires HPV vaccine: No Last Pap: 2016 normal HPV: N/A History of abnormal pap: No Last mammogram: never Sexually active: Yes Pain with intercourse: Yes Postcoital bleeding: No Obstetric History T0 L0 SAB0 TAB0 Ectopic0 Multiple0 Live Births0 No past medical history on file. PAST SURGICAL HISTORY Procedure Laterality Date - NONE No family history on file.SOCIAL HISTORY Social History Substance Use Topics - Smoking status: Never Smoker - Smokeless tobacco: Never Used - Alcohol use No REVIEW OF SYSTEMS Abdomen: No abdominal pain, nausea, vomiting, diarrhea, or constipation. No bloating, early satiety, indigestion, or increased flatulence. Bladder: No dysuria, gross hematuria, urinary frequency, urinary urgency, or incontinence. Breast: No breast lumps, nipple d/c, overlying skin changes, redness or skin retraction. Allergies and current medication updated:Yes EXAM: There were no vitals taken for this visit. GENERAL: pleasant, female in no apparent distress HEENT: Normocephalic, atraumatic, mucus membranes moist and no lesions NECK: Supple, full range of motion, no adenopathy and thyroid normal DERMATOLOGY: Normal, without lesions, non-icteric and non-hirsute BREAST: soft, non-tender, symmetric, no dominant mass, normal nipple-areolar complex, no lymphadenopathy and no nipple discharge CHEST: Normal inspiratory effort ABDOMEN: soft, non-tender and no masses PELVIC: external genitalia normal, normal Bartholin's glands, urethra, [place]'s glands, no vulvar lesions, no cervical lesions, good vaginal support, physiologic discharge present, normal appearing perineal body and perianal region, well estrogenized BIMANUAL: uterus normal size, shape and consistency, no adnexal masses, non-tender and no cervical motion tenderness RECTOVAGINAL: deferred. NEURO: alert and oriented x3,exam grossly non-focal EXTREMITIES: normal ASSESSMENT/PLAN: 1) Health maintenance: Pap/HPV up to date. Mammogram starting age 40. Nutrition, exercise and routine health maintenance exams reviewed. Calcium/Vitamin D supplementation information provided. 2) Contraception: none. Contraceptive options reviewed and information provided. 3) STD screening: Declined STD check. 4) Follow up one year or sooner as needed 5) Recommended PNV w/ folic acid preconception and to track ovulation Lilliana Schaeffer APRN.ANJEL Referring Provider: SELF [200] Allergies As of Date: 12/16/2017 (No Known Allergies) Date Reviewed: 12/16/2017 Reviewed by: Lilliana (Anjel) Laury - Fully Assessed Reason for Visit: Yearly Exam [187] Cmt: discuss preconception Primary Visit Diagnosis:Encounter for gynecological examination (general) (routine) without abnormal findings [Z01.419] Problem List As Of Date: 12/16/2017 (None) Disposition: Return in 1 year (on 12/16/2018) for Annual Exam. Follow-up and Disposition History Recorded Encounter Status:Closed by LILLIANA SCHAEFFER on 12/16/17 ALLERGIES ALLERGIES DATE TYPE / CODE NAME / CODE REACTION SEVERITY SOURCE Drug NO KNOWN [facility] Class/82591 ALLERGIES [place] 1003(SNOMED Repository CT) ENCOUNTERS ENCOUNTERS ADMIT/DISCHARGE ACCOUNT ADMITTING ENCOUNTER LOCATION SOURCE NUMBER CLASS 10/11/2018 [id number] [facility] ing:LABSPEC Repository 08/18/2018/08/21/20 [id number] Ambulatory [address] [place] Rep[place] 07/28/2018/07/28/20 [id number] Ambulatory [address] [place] 07/21/2018/07/24/20 [id number] Ambulatory [address] [place] Rep[place] 02/14/2018/02/16/20 [id number] Ambulatory [address] [place] 12/16/2017/12/21/19 [id number] Ambulatory [address] Repository PAYERS PAYERS ENCOUNTER GUARANTOR PAYER SUBSCRIBER SOURCE 10/11/2018 Magdiel Primary [facility] [id number] Insurance:[facility] NabarreteDOB: [facility] Number: [id number] [address] [id number] Repository [address]Pdk: [phone] pierce Date:[id number] [phone] () [address], [place] [address]WO: 10/11/2018 Secondary NOT GIVENUNK Meg Insurance:SELF PAY [facility] Number: Effective Repository Date:2018-10-11
== END ==
PROVIDERS: Visit Provider Obstetrics & Gynecology
DX: Z11.3 Encounter for screening for infections with a predominantly sexual mode of transmission (principal)
CPT/HCPCS: 87081; 87491; 87591

== ENCOUNTER → 2018-11-07 10:15 | Outpatient (CLI) | payer BC, SELFPAY ==
[2018-11-10 00:50] LABS: Rapid Plasmin Reagin (RPR) NONREACTIVE (NONREACTIVE)
== END ==
PROVIDERS: Visit Provider Obstetrics & Gynecology
DX: O23.42 Unspecified infection of urinary tract in pregnancy, second trimester (principal); Z3A.00 Weeks of gestation of pregnancy not specified
CPT/HCPCS: 36415; 86592; 87086

== ENCOUNTER → 2018-12-18 11:12 | Outpatient (CLI) | payer BC, SELFPAY | PROVIDERS: Referring Provider Obstetrics & Gynecology; Visit Provider Obstetrics & Gynecology | DX: O26.899 Other specified pregnancy related conditions, unspecified trimester (principal); N93.0 Postcoital and contact bleeding; Z3A.00 Weeks of gestation of pregnancy not specified | CPT/HCPCS: 87086 ==

== ENCOUNTER → 2019-02-13 | Outpatient (CLI) | payer BC, SELFPAY ==
[2019-02-13 12:48] LABS: Glucose Challenge Gest 1H 50g 98 mg/dL (70-140)
[2019-02-13 13:15] LABS: Hematocrit 35.1 % (37-47); Hemoglobin 11.8 g/dl (12.0-15.0); Mean Corp Hgb Conc 33.6 g/gl (32-36); Mean Corpuscular Hgb 31.5 pg (27.0-32.0); Mean Corpuscular Volume 93.6 fL (81-99); Mean Platelet Vol. 10.2 fl (6.2-12.0); Platelet Count 276 K/mm3 (150-450); RBC Distribution Width CV 13.4 % (11.6-14.6); RBC Distribution Width SD 45.8 fl (35.1-43.9); Red Blood Count 3.75 M/mm3 (4.2-5.4); White Blood Count 10.9 K/mm3 (4.4-11.0)
[2019-02-13 13:19] LABS: Scan Indicated on CBC? Y/N NO
== END | disposition home or self-care (01) ==
LOC: LABSPEC 10:34
PROVIDERS: Visit Provider Obstetrics & Gynecology
DX: Z34.83 Encounter for supervision of other normal pregnancy, third trimester (principal)
CPT/HCPCS: 82950; 85027

== ENCOUNTER → 2019-03-29 | Outpatient (CLI) | payer BC, SELFPAY | END | disposition home or self-care (01) | LOC: LABSPEC 09:40 | PROVIDERS: Visit Provider Obstetrics & Gynecology | DX: R30.0 Dysuria (principal) | CPT/HCPCS: 87086; 87088 ==

== ENCOUNTER 2019-05-05 21:20 | Outpatient (CLI) | payer BC, SELFPAY ==
[2019-05-05 22:21] VITALS: BMI 32.3
[2019-05-05 22:27] LABS: ROM Internal Control Test YES-OK TO RESULT pt. (Internal QC); ROM Patient Test Negative (Negative)
--- NOTE | 2019-05-06 10:33 | OB.TRI.NOTE ---
History of Present Illness Date of Service: 05/05/19 Was patient seen by the physician?: No Reason For Visit: RULE OUT LABOR Final CORY: 05/04/19 Final CORY Source: US <20 weeks Gestational age: 40 Weeks and 1 Days History of Present Illness: 29yo G1 @ 40 1/7wga with c/o leaking of fluid and decreased movement Allergies No Known Allergies Allergy (Verified 05/05/19 22:22) Laboratory Studies: Laboratory Tests 05/05/19 Range/Units 21:55 Vag Amniotic Fld Detect Negative (Negative) NST - FHR Rate Baby A Baseline: 120 Variability:: Moderate Accelerations:: 15 x 15 Decelerations:: None NST Reactive:: Yes FHR Category:: Category I Uterine Activity:: irritability Impression/Plan 29yo G1 @ 40 1/7wga -ROM plus neg -NST Cat I and reactive, per RN report pt felt regular movement during observation period. -d/c home with movement precautions
== END 2019-05-05 22:47 | disposition home or self-care (01) ==
LOC: WPOUT 21:49 → WP 21:50
PROVIDERS: Referring Provider Obstetrics & Gynecology; Visit Provider Obstetrics & Gynecology
DX: O36.8130 Decreased fetal movements, third trimester, not applicable or unspecified (principal); Z3A.40 40 weeks gestation of pregnancy
CPT/HCPCS: 59025; 84112; 99218; G0378

== ENCOUNTER 2019-05-08 07:00 | Inpatient (IN) | payer BC, SELFPAY ==
[2019-05-08 07:12] VITALS: BMI 32.2
[2019-05-08] MEDS: Lactated Ringers 1,000 ML 50 ML IV (07:50)
[2019-05-08 08:06] LABS: Absolute Lymphocyte Count 2.72 X10^3/uL (0.83-4.51); Absolute Neutrophil Count 8.3 X10^3/uL (2.0-7.7); Basophil# 0.03 X10^3/uL; Basophil% 0.3 % (0-1); Eosinophil# 0.07 X10^3/uL; Eosinophils% 0.6 % (0-5); Hematocrit 40.4 % (37-47); Hemoglobin 13.7 g/dL (12.0-15.0); Lymphocyte # 2.72 X10^3/ul (4.0); Lymphocyte % 23.1 % (19-41); Mean Corp Hgb Conc 33.9 g/dL (32-36); Mean Corpuscular Hgb 31.9 pg (27.0-32.0); Mean Platelet Vol. 10.7 fl (6.2-12.0); Monocyte# 0.57 X10^3/uL; Monocyte% 4.8 % (0-10); NRBC Flagged by Analyzer 0 % (0-5); Neutrophil # 8.28 X10^3/uL (2.7-7.7); Neutrophil % 70.4 % (47-70); Platelet Count 225 K/mm3 (150-450); RBC Distribution Width CV 13.2 % (11.6-14.6); RBC Distribution Width SD 45.1 fl (35.1-43.9); White Blood Count 11.8 K/mm3 (4.4-11.0)
--- NOTE | 2019-05-08 09:04 | PCM.HP.OB ---
- Problem List (1) 40 weeks gestation of Status: Acute History Date of Admission: 05/08/19 Final CORY: 05/04/19 Final CORY Source: US <20 weeks Gestational age: 43 Weeks and 5 Days History of this : This is a 29 year-old, G [1], P [], at 40 weeks gestational age. Medical History: Medical History (Last Updated 05/30/19 @ 07:38 by Tonya Berkowitz MD) Patient denies significant medical history Allergies No Known Allergies Allergy (Verified 05/08/19 07:14) Home Medications: Home Medications Prenatabs FA 1 tab PO DAILY 05/05/19 Docusate Sodium [Colace] 100 mg PO BID PRN PRN #60 cap 05/09/19 Smoking Status: Never smoker Alcohol: None Number of Fetus(es): 1 NST - FHR Rate Baby A Baseline: 130 Variability:: Moderate Accelerations:: 15 x 15 Decelerations:: None NST Reactive:: Yes FHR Category:: Category I Uterine Activity:: irritability History Past Pregnancies: Past Pregnancies Delivery Date Name GA/Weeks Outcome Route Weight Gender Labor Length Anesthesia Delivery Location Provider FOB Labs: Mom's Labs & Results 05/08/19 05/08/19 07:50 07:50 WBC 11.8 H RBC 4.30 Hgb 13.7 Hct 40.4 MCV 94.0 MCH 31.9 MCHC 33.9 RDW Std Deviation 45.1 H RDW Coeff of Ashwini 13.2 Plt Count 225 MPV 10.7 Immature Gran % (Auto) 0.800 Neut % (Auto) 70.4 H Lymph % (Auto) 23.1 Graham % (Auto) 4.8 Eos % (Auto) 0.6 Baso % (Auto) 0.3 Absolute Neuts (auto) 8.3 H Absolute Lymphs (auto) 2.72 Nucleated RBC % 0 Blood Type Pending Antibody Screen Pending Course Did the patient receive Yes care? Labs Blood Type: A RH: POSITIVE RPR/VDRL/Syphilis Nonreactive HbSAg Not Done Date Done: 09/04/18 Chlamydia Negative Gonorrhea Negative HIV/AIDS Non-Reactive Group B Strep: Positive Current Obstetrical History Gestational Diabetes No Incompetent Cervix No Infertility No IUGR No Macrosomia No Hypertension/Pre-eclampsia No Placenta Previa/Abruption Yes: resolved at 36 weeks PTL/PROM No Uterine anomaly No Oligohydramnios No Polyhydramnios No Multiple gestation No Past Medical History Asthma No Diabetes No Hypertension No Heart disease No Mitral valve prolapse No Neurologic/Seizure disorder/ No Migraines Kidney disease No Liver disease No Varicosities No Clotting disorders/Hx of DVT No Thyroid Dysfunction No Other medical diseases No Psychiatric disorders No Major trauma No Abnormal PAP smear No Sleep apnea No Mammogram in the last 2 years No Social History Marital Status: Alleged father Magdiel Hx Smoking No Smoking Status Never smoker How long have you used n/a substances (years)? Expected Infant Delivery Method: Spontaneous Vaginal Physical Exam Vitals: AVSS General: Alert, Oriented x3, Cooperative, No apparent distress HEENT: Atraumatic, Normocephalic Lungs: Normal air movement Abdomen: Soft, Non Tender, Non-Distended, Gravid Extremities:: No edema Neurological: Neuro grossly intact GENERAL FORECASTER: Normal external genitalia Estimated gestational size: Appropriate for gestational size Presentation: Cephalic Cervix Dilation (cm): 0 Station: -3 Effacement (%): 0 Assessment/Plan All Active Problems 40 weeks gestation of (Acute) This is a 29 year-old, G [1], P [], at 40 4/7 weeks gestational age with resolved third trimester bleeding -hx prior previa resolved -Reviewed IOL, vaginal delivery and section r/b/i. Consents signed and reviewed. -Discussed various induction agents and potential side effects. -Cytotec for unfavorable cervix -Continuous monitoring
[2019-05-08] MEDS: miSOPROStol 50 MCG TABLET PO (18:14)
[2019-05-08 19:54] LABS: Rubella IgG > 500.0 IU/mL
[2019-05-08] MEDS: Lactated Ringers 1,000 ML 999 ML IV (23:00)
[2019-05-08] MEDS: 0.9% Saline Lock 10 ML Syringe IV (23:00)
[2019-05-09] VITALS (28 sets, daily range): BP systolic 100–122; BP diastolic 47–77; PULSE 60–86; RESP 16–18; TEMP 36.1–37.1; O2SAT 95–100
[2019-05-09] MEDS: Sodium Citrate/Citric Acid 30 ML UDC PO (00:58)
--- NOTE | 2019-05-09 01:07 | PCM.PN.OB ---
Patient Problems: Active and Suspected Problems 40 weeks gestation of (Acute) Subjective: Patient continues to have mild to moderate vaginal bleeding which has increased over the past several hours. With increased contractions an occasional late deceleration is noted. However, internal monitors cannot be placed to confirm that these are late decelerations because the cervix is closed, 85 to 90% effaced and high and posterior. Given increased bleeding and possible late decelerations with possible abruption in process we discussed the possibility of proceeding with section with the patient and her . They desire that we proceed. Patient and her have been counseled regarding the risk and indications of this procedure including the possibly of bleeding infection and injury to surrounding structures such as bowel and bladder decided we proceed all questions were answered - Physical Exam Weight: 199 lb 11.821 oz Body Mass Index (BMI) 32.2 Intake and Output for Last 24 Hours 05/07/19 05/08/19 05/09/19 23:59 23:59 23:59 Intake Total 1358.67 / 1358.67 290 / 290 Output Total 1100 / 1100 400 / 400 Balance 258.67 / 258.67 -110 / -110 Laboratory Tests Past 24 Hrs 05/08/19 05/08/19 05/08/19 07:50 07:50 18:25 WBC 11.8 H RBC 4.30 Hgb 13.7 Hct 40.4 MCV 94.0 MCH 31.9 MCHC 33.9 RDW Std Deviation 45.1 H RDW Coeff of Ashwini 13.2 Plt Count 225 MPV 10.7 Immature Gran % (Auto) 0.800 Neut % (Auto) 70.4 H Lymph % (Auto) 23.1 [place] % (Auto) 4.8 Eos % (Auto) 0.6 Baso % (Auto) 0.3 Absolute Neuts (auto) 8.3 H Absolute Lymphs (auto) 2.72 Nucleated RBC % 0 Rubella IgG Antibody > 500.0 Blood Type A POSITIVE Antibody Screen NEGATIVE Medical Necessity - Tobacco Use Smoking Status: Never smoker Assessment/Plan All Active Problems 40 weeks gestation of (Acute)
--- NOTE | 2019-05-09 02:13 | PCM.OPRPT ---
Delivery Classification: BETH Final CORY: 05/04/19 Final CORY Source: US <20 weeks Gestational age: 40 Weeks and 5 Days Indications: Increasing Vaginal Bleeding, Repetitive Late Decelerations, Suspected Partial Placental Abruption Description of Procedure: Surgeon: Dougie Mathis MD, FACOG Behavioral [facility] Care Coordinator: GISELLE Milan Anesthesia: Neno Guevara MD Anesthesia: Spinal with Duramorph Pre-op Diagnosis: Increasing Vaginal Bleeding, Repetitive Late Decelerations, Suspected Partial Placental Abruption Post-Op Diagnosis: Increasing Vaginal Bleeding, Repetitive Late Decelerations, Partial Placental Abruption Procedure: Primary Low Transverse Cervical Caesarean Section Findings: Viable female with Apgars of 8/9 in occiput anterior presentation with moderately thick amniotic fluid and normal three-vessel placenta with approximately 15 to 20% marginal placental abruption noted. Indication: This is a 29-year-old who presented at 40 and 4 weeks gestation with some vaginal bleeding. Given this the patient was admitted for induction. Patient's cervix was closed and high and cephalic presentation confirmed with ultrasound at bedside. Cytotec was started and after several doses occasional late decelerations were noted and bleeding was increasing. Cervix remain closed and about 90% effaced and high and we were unable to place internal monitors. Given this it was decided to proceed with section for increased vaginal bleeding, nonreassuring heart tones, and suspected early placental abruption. care has otherwise been uneventful except for a marginal previa which resolved by about 36 weeks gestation. The patient has been counseled regarding the risk and indications of this procedure including the possibility of bleeding infection and injury to surrounding structures such as bowel bladder. All questions were answered. Procedure: Patient was taken to the operating room where after spinal anesthesia was placed, the patient was prepped and draped in usual sterile fashion and a Lilly catheter was placed. The abdomen was entered through a Pfannenstiel incision and peritoneum was entered bluntly. After developing a bladder flap on the lower uterine segment a low transverse incision was made on the uterus and head was delivered onto the operative field with the assistance of Kiwi vacuum suction and the nose mouth and oropharynx were bulb suctioned. Subsequently a viable female was born with Apgars of 8/9. The was noted to cry move all extremities vigorously on the operative field. The umbilical cord was doubly clamped and ligated and infant handed to the nursery personnel who were present for the delivery. Placenta was delivered and noted to be 3 vessels and normal. Uterus was exteriorized and remaining placental tissue was removed. The uterus was then closed in 2 layers first with running locked 0 Vicryl suture followed by a second imbricating layer with 0 Vicryl suture. 0 Vicryl suture was then used in a horizontal mattress interrupted fashion to affect final hemostasis of the uterine incision line. Normal fallopian tubes and ovaries were visualized and the uterus was returned to the pelvis. Hemostasis was noted and rectus abdominis muscles were reapproximated in the midline with interrupted Number 0 Vicryl suture in a horizontal mattress fashion. Fascia was closed with running Number 1 PDS Strata fix suture. Subcutaneous tissue was irrigated with copious amounts of saline solution and then closed with running 3-0 Vicryl suture. Skin was closed with 4-0 monocryl suture in a running subcuticular fashion. Steri strips, telfa, and tape were placed across the incision. The patient tolerated the procedure well and was taken to the recovery room in satisfactory condition. Sponge, needle, and instrument counts were all reportedly correct. EBL was less than 500 cc. Cefotan 2 gms IV was given prior to the procedure. Spicemen to Pathology: Placenta Complications: None Amniotic Fluid Description: Moderate meconium Placenta Disposition: Sent to Pathology Specimen(s) sent to pathology: Placenta Drain: Lilly to straight drain Cord Entanglement: None Cord Vessel Description: 3 Vessels Esitmated Blood Loss (ml): 500 cc Infant Gender: Female (1 minute): 8 (5 minute): 9 Pre-op Antibiotic Given: Cefotan 2gm IV x1 Pt instructed on risks of surgery: Bleeding, Infection, Injury to surrounding structure(s) including bowel and bladder Complications: None - Admit VTE Documentation VTE Present on Admission: Yes VTE Mechan Device Prophylaxis: SCD's
[2019-05-09] MEDS: Methylergonovine 0.2 MG/ML Ampul IM (02:18)
--- NOTE | 2019-05-09 02:23 | DCINST_ITS ---
Discharge Diet: No Restrictions Discharge Activity: May not drive while taking narcotic pain medications., May Shower, May Take a Tub Bath May resume sexual activity in: 4-6 weeks Lifting Restrictions: 20 pounds Additional Activity Instructions:: Nothing in the vagina for 4-6 weeks. You may return to work/school in 6 weeks. Call your doctor if your incision/area has: Continuous Slow Oozing, Sudden Increased Bleeding, Increased Pain/ Swelling, Increased Redness, Foul Smelling Discharge Call your doctor if you observe: Fever of 101 or Higher, Inability to urinate, Inability to have a bowel movement, Using more than one pad per hour Additional Instructions: If you experience any of the following, contact your healthcare provider. * Bleeding that soaks a pad every hour for 2 hours * Unrelieved incision or abdominal pain * Swelling, redness, discharge or bleeding from your incision or episiotomy site * Your incision begins to separate * Problems urinating (including inability to urinate or burning while urinating). * Visual changes * Severe headache * Flu-like symptoms * Pain or redness in one of both of your breasts * Pain, warmth, tenderness or swelling in your legs, especially the calf area * Frequent nausea and vomiting * Symptoms of depression or anxiety If you experience any of the following, call 911 or go to the nearest Emergency Room. * Chest pain * Problems breathing * Seizure activity * Partial or complete paralysis of a body part, slurred speech, weakness or drooping of the face, or a sudden inability to walk or hold your balance Allergies/Adverse Reactions: Allergies No Known Allergies Allergy (Verified 05/08/19 07:14) Medications to take at Discharge Prenatabs FA 1 tab PO DAILY 05/05/19 Docusate Sodium [Colace] 100 mg PO BID PRN PRN #60 cap 05/09/19 Oxycodone [Oxyir] 5 mg PO Q6H PRN PRN 7 Days #20 tab 05/09/19 The following prescriptions were given: Docusate Sodium [Colace] 100 mg PO BID PRN PRN #60 cap PRN Reason: Constipation Prescription Printed Oxycodone [Oxyir] 5 mg PO Q6H PRN PRN 7 Days #20 tab PRN Reason: Severe Pain (6-06/28) Prescription Printed Follow-Up: Call to make an appointment with your doctor for an incision check in 1-2 weeks. You will also need a 6 week post- follow up appointment. Test results from this visit will be discussed in further detail at your follow- up appointment, if applicable. Please Follow Up With: Dougie Mathis MD - [phone] When: Call to make an appointment for an incision check in 2 weeks.
[2019-05-09] MEDS: Oxytocin 30 units/NS 500 ml 30 UNITS/500 ML IV.SOLN 167 UNITS IV (02:25)
--- NOTE | 2019-05-09 02:32 | PLAC_PTH ---
PATIENT: ANDRADE BEEBE LOC: [facility] U#:[id number] AGE/SX: ROOM: WP003 RE05/08/[address]: Dr. Dougie Mathis MD : 1990 BED: 1 DIS: 05/11/2019 SPEC #: [id number] RECD: 05/09/19 08:30 STATUS: SABRINA NIDHI #: [id number] NANCY: 05/09/19 02:[address]: Dougie Mathis DEPT: SURGICAL PATHOLOGY RECD BY: Shady Garcia Tissues: Placenta, NOS Procedures: Surgery Specimen Level V HEADER OPERATION: Primary section PRE-OP DIAGNOSIS: Possible partial placental abruption TISSUE SUBMITTED: Placenta MICROSCOPIC DIAGNOSIS Placenta: Placental disc - third trimester placenta (365 gm). - Focal area of infarction (1 cm in greatest dimension). - Fibrinous plaques, surface (largest measuring 3.5 cm in greatest dimension). Membranes - no pathologic diagnosis. Umbilical cord - three blood vessels and no pathologic diagnosis. SJ:rg 05/11/19 MICROSCOPIC DESCRIPTION Slides are reviewed. GROSS DESCRIPTION SPECIMEN: PLACENTA / CLINICAL INFORMATION: A. Weight: 2.737 kg B. Gestational Age: 40 weeks C. Sex: Female PLACENTAL WEIGHT (POST FIXATION): 365 gm. It is partly disrupted, however, appears to be complete. PLACENTAL DIMENSIONS: 18 x 17 x 2.5 cm PLACENTAL SHAPE: Triangular PLACENTAL WEIGHT FOR GESTATIONAL AGE: Within 10-99th percentile MEMBRANES - Present A. Insertion: Marginal B. Site of rupture from edge: At edge of placental disc C. Color of membrane: Moon-greenish consistent with meconium staining D. Abnormalities: None UMBILICAL CORD - Present A. Color: Moon-best B. Insertion: Central C. Length: 12 cm D. Diameter: 1 cm E. Number of vessels: Three F. Abnormalities: Decreased spiraling is noted. PLACENTAL DISC - Present A. Color of surface: Moon-best B. surface abnormalities: surface shows a few plaques. The largest plaque measures 3.5 cm in greatest dimension. C. Maternal cotyledons: Intact with minimal tears D. Attached retro placental clot: No clot E. Cut surface: Dark red and spongy F. Lesions: Sections reveal a moon, indurated area underneath the plaque which measures 1 x 0.5 x 0.5 cm. G. Separate clot: Absent SECTIONS SUBMITTED: 1. Membrane roll 2. Cord, maternal end 3. Cord, end 4. Placental disc, and maternal surfaces, plaque, indurated area in body of placenta 5. Placental disc, and maternal surfaces, plaque on surface 6. Placental disc, and maternal surfaces HORTENCIA:jj 05/10/19 TC:5 CPT: 04086
--- NOTE | 2019-05-09 02:45 | NURSING ---
0220 approximately 400ml of rubra lochia and clots expressed in OR, methergine was given IM, updated, no new orders given, will continue to monitor
[2019-05-09] MEDS: Lactated Ringers 1,000 ML 100 ML IV (05:34)
[2019-05-09 06:09] LABS: Hematocrit 33.5 % (37-47); Hemoglobin 11.4 g/dL (12.0-15.0); Mean Corpuscular Hgb 32.5 pg (27.0-32.0); Mean Corpuscular Volume 95.4 fL (81-99); Mean Platelet Vol. 10.5 fl (6.2-12.0); Platelet Count 184 K/mm3 (150-450); RBC Distribution Width CV 13.2 % (11.6-14.6); RBC Distribution Width SD 45.8 fl (35.1-43.9); Red Blood Count 3.51 M/mm3 (4.2-5.4); White Blood Count 16.2 K/mm3 (4.4-11.0)
--- NOTE | 2019-05-09 07:57 | NURSING ---
Lilly catheter in place. WNL.
[2019-05-09] MEDS: Ketorolac 30 MG/ML Syringe IV ×3 (08:02→21:06)
[2019-05-09] MEDS: 0.9% Saline Lock 10 ML Syringe 5 ML IV ×3 (08:02→21:07)
--- NOTE | 2019-05-09 12:30 | NURSING ---
Patient ambulated to chair so sit up and feed her . Gait steady. Tolerated well. Continuous pulse ox on. Call light in reach. Father of the baby at bedside. Denies further needs at this time.
[2019-05-09] MEDS: Senna/Docusate Sodium 1 Tablet PO (19:22)
--- NOTE | 2019-05-09 21:05 | NURSING ---
Pt. ABD/telfa dressing removed for pt. to shower. Previous RN on dayshift received face to face order from the physician stating that dressing was okay to remove. See physician notification intervention. Dressing dry and intact at removal with incision well approximated.
[2019-05-10 00:30] VITALS: BP 105/55; PULSE 69; RESP 16; TEMP 36.2; O2SAT 100
[2019-05-10] MEDS: Ketorolac 30 MG/ML Syringe IV (03:21)
[2019-05-10] MEDS: 0.9% Saline Lock 10 ML Syringe 5 ML IV ×2 (03:21→03:22)
[2019-05-10 03:32] VITALS: BP 103/54; PULSE 64; RESP 16; O2SAT 100
[2019-05-10 08:25] VITALS: BP 91/58; PULSE 75; RESP 16; TEMP 36.7
--- NOTE | 2019-05-10 08:57 | PCM.PN.OB ---
Patient Problems: Active and Suspected Problems 40 weeks gestation of (Acute) Subjective: No issues overnight. Passing flatus. Pain controlled. OOB without difficulty. is nursing well, c/o nipple pain in right breast. Denies heavy lochia. Objective: avss - Physical Exam General: Alert, Oriented x3, Cooperative, No apparent distress HEENT: Atraumatic, Normocephalic Lungs: Clear to auscultation, Normal air movement Cardiovascular: Regular rate, Regular Rhythm, Normal S1, Normal S2 Abdomen: Bowel Sounds Present, Soft, Non Tender, Non-Distended, - - fundus firm and nontender at 1 FW below umbilicus, incision c/d/i Extremities: No edema, No Calf Tenderness Neurological: Neuro grossly intact Psych/Mental Status: Normal Affect, Appropriate, Alert and oriented to time, place, person, mood and affect Comment: R. nipple crack with partial cicatrix Vital Signs Temp Pulse Resp BP Pulse Ox 98.1 F 75 16 91/58 L 100 05/10/19 08:25 05/10/19 08:25 05/10/19 08:25 05/10/19 08:25 05/10/19 03:32 Oxygen Delivery Method Room Air Weight: 90.6 kg Body Mass Index (BMI) 32.2 Intake and Output for Last 24 Hours 05/08/19 05/09/19 05/10/19 23:59 23:59 23:59 Intake Total 1358.67 / 1358.67 3173.34 / 3173.34 Output Total 1100 / 1100 3185 / 3185 650 / 650 Balance 258.67 / 258.67 -11.66 / -11.66 -650 / -650 Medical Necessity - Tobacco Use Smoking Status: Never smoker Assessment/Plan All Active Problems 40 weeks gestation of (Acute) 29yo POD#1 s/p PLTCS doing well. -A positive- - -Routine postop care -R. nipple crack - lanolin, breast care discussed, f/u consult
[2019-05-10] MEDS: Ibuprofen 600 MG Tablet PO ×3 (09:25→23:58)
[2019-05-10 14:00] VITALS: BP 118/78; PULSE 88; RESP 16; TEMP 36.7
[2019-05-10 19:45] VITALS: BP 112/64; PULSE 80; RESP 18; TEMP 36.9; O2SAT 98
[2019-05-11 03:20] VITALS: BP 129/62; PULSE 84; RESP 18; TEMP 36.6
[2019-05-11] MEDS: Ibuprofen 600 MG Tablet PO (05:48)
[2019-05-11] MEDS: Senna/Docusate Sodium 1 Tablet PO (05:49)
[2019-05-11 08:30] VITALS: BP 113/71; PULSE 70; RESP 16; TEMP 36.6
--- NOTE | 2019-05-11 08:31 | PCM.PN.OB ---
Patient Problems: Active and Suspected Problems 40 weeks gestation of (Acute) Subjective: Patient without complaints. Tolerating diet well. Positive flatus. Ready to go home today. - Physical Exam Vital Signs Temp Pulse Resp BP Pulse Ox 97.9 F 84 18 129/62 H 98 05/11/19 03:20 05/11/19 03:20 05/11/19 03:20 05/11/19 03:20 05/10/19 19:45 Oxygen Delivery Method Room Air Weight: 199 lb 11.821 oz Body Mass Index (BMI) 32.2 Intake and Output for Last 24 Hours 05/09/19 05/10/19 05/11/19 23:59 23:59 23:59 Intake Total 3173.34 / 3173.34 Output Total 3185 / 3185 650 / 650 Balance -11.66 / -11.66 -650 / -650 Wound is clean, dry, intact. Good urine output. Medical Necessity - Tobacco Use Smoking Status: Never smoker Assessment/Plan All Active Problems 40 weeks gestation of (Acute) Doing well postoperative day #2 status post primary section. Will discharge to home with routine instructions.
--- NOTE | 2019-05-11 08:32 | PCM.DC.BLA ---
Discharge Summary Date of Admission: 05/08/19 Date of Discharge: 05/11/19 Summary: Admission diagnosis: Term Intrauterine with Vaginal Bleeding Discharge diagnosis: Term Intrauterine with Vaginal Bleeding, Partial Placental Abruption, Nonreassuring Heart Tones Procedure: Primary low transverse cervical section on May 08, 2019 HPI: Uneventful care. PE: Unremarkable. Hospital Course: The patient is a 29 year old G 1 P 0 who presented to [facility] at 40+ weeks gestation. She subsequently had a primary for nonreassuring heart tones and partial placental abruption. Postoperatively she did well demonstrating a stable HGB on POD 1 and bowel fxn by POD #2 at which time it was felt she was ready for discharge. Homegoing Instruction: She was instructed not to drive for several days or if using narcotic pain medication, not to put anything in the vagina for 4 weeks, not to lift >25 lbs for 6 weeks and to call the office for an appointment in 2 weeks and 6 weeks. Discharge Medications: She was given a prescription for Oxycodone and Colace and also plans to use Aleve or Motrin or Tylenol at home as needed for pain and constipation. Patient Problems: Active and Suspected Problems 40 weeks gestation of (Acute) - Physical Exam Vital Signs Temp Pulse Resp BP Pulse Ox 97.9 F 84 18 129/62 H 98 05/11/19 03:20 05/11/19 03:20 05/11/19 03:20 05/11/19 03:20 05/10/19 19:45 Oxygen Delivery Method Room Air Weight: 199 lb 11.821 oz Body Mass Index (BMI) 32.2 Intake and Output for Last 24 Hours 05/09/19 05/10/19 05/11/19 23:59 23:59 23:59 Intake Total 3173.34 / 3173.34 Output Total 3185 / 3185 650 / 650 Balance -11.66 / -11.66 -650 / -650
[2019-05-11] MEDS: oxyCODONE 5 MG Tablet PO (11:57)
[2019-05-11 15:30] LABS: Pathology Specimen OB SEE PATHOLOGY REPORT
[2019-05-28 08:15] LABS: Pathology Specimen OB SEE PATHOLOGY REPORT
== END 2019-05-11 12:20 | disposition home or self-care (01) | DRG 788 ==
LOC: WPOUT 08:00 → WP 05-09 01:40
PROVIDERS: Obstetrics & Gynecology; Admitting Provider Obstetrics & Gynecology; Referring Provider Obstetrics & Gynecology; Visit Provider Obstetrics & Gynecology
DX: O45.93 Premature separation of placenta, unspecified, third trimester (principal); O76 Abnormality in fetal heart rate and rhythm complicating labor and delivery; O77.0 Labor and delivery complicated by meconium in amniotic fluid; Z3A.40 40 weeks gestation of pregnancy; Z37.0 Single live birth; O92.13 Cracked nipple associated with lactation
CPT/HCPCS: 59025; 59050; 76815; 85025; 85027; 86762; 86850; 86900; 86901; 88307; 99218; J7120; A4216; G0378; J2405

== ENCOUNTER 2021-04-30 02:47 | Emergency (ER) | payer BC, SELFPAY ==
[2021-04-30 02:49] VITALS: BP 126/79; PULSE 80; RESP 18; TEMP 37; O2SAT 100; BMI 26.4
--- NOTE | 2021-04-30 03:13 | US_ITS ---
STUDY: FIRST TRIMESTER OBSTETRICAL ULTRASOUND REASON FOR EXAM: Female, 31 years old patient with pelvic pain and abnormal vaginal bleeding. LMP: 01/29/2021 TECHNIQUE: Transabdominal and Transvaginal TECHNICAL QUALITY: Adequate. PRIOR ULTRASOUND: Prior comparison studies are not available for review at this time. FINDINGS: There is visualization of a single gestational sac in a normal intrauterine position. The mean sac diameter (MSD) measures 3.9 cm, indicating an estimated gestational age (EGA) of 9 weeks, 2 days. The gestational sac shape is within normal limits. There is separation of the chorion and amnion, a normal finding in the first trimester. There is no demonstrated yolk sac. The placenta is non-visualized. There is visualization of an embryo with no cardiac activity, consistent with intrauterine demise. The crown-rump length (CRL) measures 2.2 cm, indicating an estimated gestational age (EGA) of 8 weeks, 5 days. The estimated gestation age (EGA) by LMP is 13 weeks, 0 days. The estimated date of delivery (CORY) by LMP is 11/05/2021. The estimated gestation age (EGA) by US is 9 weeks, 0 days. The estimated date of delivery (CORY) by US is 12/03/2021.. The uterus measures 10.4 x 6.2 x 7.8 cm. There is no demonstrated uterine fibroid. The cervix is closed. The right ovary measures 2.6 x 1.6 x 2.0 cm. There is no right ovarian cyst. There is no visualized right adnexal mass or complex lesion. The left ovary measures 3.7 x 3.7 x 2.6 cm. There are multiple follicles of the left ovary without a dominant cyst. There is no visualized left adnexal mass or complex lesion. Color Doppler and Doppler document normal blood flow to both ovaries. There is no fluid in the cul de sac. US/Init OB < 14Wks US IMPRESSION: Findings suggest embryonic demise. Electronically Signed: Dulce Bennett MD at 5:11 EDT , Service support ,
--- NOTE | 2021-04-30 03:19 | ED.VIS.FEGU ---
HPI HPI - Female History of Present Illness Chief Complaint: Vag Bld, Preg Informant: patient Narrative Narrative: Patient is G2, P1 female proximately 13 weeks by dates she tells me. She has had some nausea and vomiting with although that is better. She had some dysuria or pressure a few weeks back. Urine was checked and had some blood but no other findings. She thinks she had an ultrasound about a month ago. No reported known abnormalities. She states she noticed a little bit of pelvic discomfort more on the left this afternoon. She also had a small amount of vaginal bleeding. It is much less than the menstrual cycle. Nothing makes her symptoms better or worse. She has not passed any clots or tissues. Only surgery is prior about 2 years ago. Patient is blood type a positive verified on our lab from April 2019. [facility] [place] Medical History delivery delivered Patient denies significant medical history Home Medications Prenatabs FA 1 tab PO DAILY 05/05/19 [History Last Taken 05/07/19] Allergy/AdvReac Type Severity Reaction Status Date / Time No Known Allergies Allergy Verified 04/30/21 02:48 Social History Smoking Status: Never smoker ROS ROS ED Constitutional Constitutional ED: Denies chills or fever(s) ENT ENT ED: Denies sore throat Cardiovascular Cardiovascular: Denies chest pain or palpitations Respiratory/Chest Respiratory/Chest: Denies cough or dyspnea Gastrointestinal Gastrointestinal: Denies diarrhea, nausea or vomiting Genitourinary Genitourinary ED: Reports other Details: Patient had urinary pressure earlier in but it is now gone. ; Denies dysuria, hematuria or urinary frequency Musculoskeletal Musculoskeletal: Denies arthralgias or neck pain Integumentary Denies rash Neurologic Neurologic: Denies paresthesias or weakness Hematologic/Lymphatic Hematologic/Lymphatic: Denies easy bleeding or easy bruising Allergic/Immunologic Allergic/Immunologic ED: Denies urticaria EXAM Physical Exam Const Vital Signs: 04/30/21 02:49 Temperature 98.6 F Temperature Source Temporal Pulse Rate 80 Respiratory Rate 18 Blood Pressure 126/79 H Blood Pressure Mean 94 Pulse Ox 100 Positive well nourished and well developed General Appearance ED: well developed and NAD HEENT Reports moist mucous membranes Eyes General Eye ED: Negative for pale conjunctiva Chest Wall inspection of chest normal Resp normal respiratory effort and clear to auscultation bilaterally Cardio regular rate and regular rhythm GI normal to inspection, nondistended, normoactive bowel sounds and soft to palpation GI Narrative: Patient has very minimal discomfort with palpation of the left lower quadrant. She states that she feels a little discomfort or pressure there. No objective indication of tenderness though. There is no rebound or guarding. Pelvic exam will be reported separately. Extremity normal to inspection and full ROM Neuro oriented x3 Sensorium / Orientation: alert Psych mental status grossly normal Skin no rashes or lesions noted MDM MDM MDM Narrative Medical decision making narrative: Pelvic exam was done with nurse in attendance. Procedure was explained to the patient. External genitalia is normal. No visible external bleeding. There is a small amount of blood at the cervical os. It looks older. Is not bright red. No active bleeding. I see no tissue. The cervical os is soft but appears to be closed. No notable adnexal area tenderness. No notable tenderness with exam. 04: 48 I was called by ultrasound that her ultrasound shows a little over 9 weeks but no heartbeat at all. This is intrauterine demise. Patient reportedly had an ultrasound 4 weeks ago that would have put her at 13 weeks. I am awaiting the final reading. Final reading is consistent with demise at approximately 9 weeks gestation. I explained this to the patient. I explained the size of the fetus. I explained the normal process of some bleeding cramping and tissue passage. Patient would like to go home now. That is a reasonable option. I explained that it is possible she will need a dilation and curettage. However, she may be early enough to complete the miscarriage on her own. She needs to follow-up with her [facility] physician. She can call that her physician today. They will follow hormone levels and/or ultrasounds until resolution. She still may need that D&C done. If she has pain bleeding, lightheadedness or any other concerns she should return. Lab Data Labs: Laboratory Results - last 24 hr 04/30/21 03:25 Urine Color Yellow Urine Clarity Sl. Cloudy Urine pH 7.0 Ur Specific [place] 1.015 Urine Protein 15 H Urine Glucose (UA) Normal Urine Ketones Negative Urine Occult Blood 250 H Urine Nitrite Negative Urine Bilirubin Negative Urine Urobilinogen Normal Ur Leukocyte Esterase 25 H Urine RBC 10-25 SEEN Urine WBC 0-5 SEEN Ur Squamous Epith Cells 5-10 SEEN Urine Bacteria 1+ Urine Mucus 0 SEEN Radiography Diagnostic Testing: Radiology Impression Obstetrics Ultrasound 04/30/21 03:13 IMPRESSION: Findings suggest embryonic demise. Electronically Signed: Dulce Bennett MD at 5:11 EDT , Service support , Discharge Plan Triage Chief Complaint: Vag Bld, Preg ED Provider: Abimael Davis Dx/Rx/DC Orders Clinical Impression: demise, less than 22 weeks, Vaginal bleeding during Instructions: Understanding Miscarriage: Emotions, Understanding Miscarriage ... Prescriptions: No Action Prenatabs FA 1 tab PO DAILY RF: 0 Primary Care Provider: Kezia Chavez Referrals: Kezia Chavez MD [Primary Care Provider] - 2 Days Disposition Disposition: Home, Self Care
[2021-04-30 03:31] LABS: Mucous, Urine 0 SEEN /hpf (<or=2+)
[2021-04-30 03:32] LABS: Color, Urine Yellow (Yellow); Glucose, Dipstick Normal (Normal); Ketone-Dipstick Negative (Negative); Leukocyte Esterase-Dipstick 25 /ul (Negative); Nitrite-Dipstick Negative (Negative); Occult Blood-Urine 250 /ul (Negative); Protein-Dipstick 15 mg/dl (Negative); Specific Gravity, Urine 1.015 (1.002-1.030); Urine Bilirubin Dipstick Negative (Negative); Urine Clarity Sl. Cloudy (Clear); Urine Urobilinogen Normal (Normal)
[2021-04-30 03:47] LABS: Bacteria 1+ /hpf (None Seen); Red Blood Cells-Urine 10-25 SEEN /hpf (0-5); Squamous Epithelial Cells - UA 5-10 SEEN /hpf (5-10); White Blood Cells 0-5 SEEN /hpf (0-5)
[2021-04-30 05:39] VITALS: BP 118/74; PULSE 64; RESP 18; O2SAT 99
== END 2021-04-30 05:40 | disposition home or self-care (01) ==
PROVIDERS: Emergency Provider Emergency Medicine; PCP Obstetrics & Gynecology
DX: O02.1 Missed abortion (principal)
CPT/HCPCS: 76801; 81001; 99282